=== PATIENT | male | born 1960 | race Caucasian/White ===

== ENCOUNTER 2017-07-26 07:55 | Observation (INO) | payer MEDICAID, OTHER ==
[~2017-07-26] VITALS: Ht 170.2 cm; Wt 77.7 kg
[2017-07-26] MEDS ORDERED: SODIUM CHLORIDE 0.9% 1,000 ML IV ONE (08:23)
[2017-07-26] MEDS ORDERED: SODIUM CHLORIDE 0.9% 1,000ML IVBOLUS ONE (08:30)
[2017-07-26 08:39] LABS: BASOPHILS # (AUTO) 0.04 x10^3/uL (0-0.1); BASOPHILS % (AUTO) 1 % (0-1); EOSINOPHILS # (AUTO) 0.18 x10^3/uL (0-0.4); EOSINOPHILS % (AUTO) 3 % (1-7); LYMPHOCYTES # (AUTO) 2.22 x10^3/uL (1-3.4); LYMPHOCYTES % (AUTO) 37 % (22-44); MD NO; MEAN CORPUSCULAR HEMOGLOBIN 28.2 pg (27.5-34.5); MEAN CORPUSCULAR HGB CONC 33.2 g/dL (33.2-36.2); MEAN PLATELET VOLUME 7.8 fL (7.4-10.4); MONOCYTES # (AUTO) 0.72 x10^3/uL (0.2-0.8); MONOCYTES % (AUTO) 12 % (2-9); NEUTROPHILS % (AUTO) 48 % (42-75); PLATELET COUNT 256 x10^3/uL (130-400); RED BLOOD COUNT 4.87 x10^6/uL (4.38-5.82); RED CELL DISTRIBUTION WIDTH 18.4 % (9.4-14.8)
[2017-07-26 08:51] LABS: ALBUMIN 3.8 g/dL (3.4-5.0); ANION GAP 10 mmol/L (5-15); CALCIUM 8.1 mg/dL (8.5-10.1); CHLORIDE 107 mmol/L (98-107); SALICYLATE LEVEL 2.1 mg/dL (2.8-20.0)
[2017-07-26 08:54] LABS: ALANINE AMINOTRANSFERASE 49 U/L (12-78); ALKALINE PHOSPHATASE 64 U/L (45-117); BILIRUBIN,TOTAL 0.4 mg/dL (0.2-1.0); CREATININE 0.97 mg/dL (0.7-1.3); TOTAL PROTEIN 7.8 g/dL (6.4-8.2)
[2017-07-26 08:56] LABS: ACETAMINOPHEN < 2 mcg/mL (10-30)
[2017-07-26] MEDS ORDERED: LISI-170 PO (10:12)
[2017-07-26] MEDS ORDERED: TRAZ150T62 PO (10:13)
[2017-07-26] MEDS ORDERED: ONDANSETRON ODT 4 MG PO PRN (11:00)
[2017-07-26] MEDS ORDERED: ACETAMINOPHEN 325 MG TABLET PO PRN (11:00)
[2017-07-26] MEDS ORDERED: LORazepam 1MG TABLET ONE ×3 (11:42→17:29)
[2017-07-26] MEDS: LORazepam 1MG TABLET PO PRN ×3 (11:48→17:30)
[2017-07-26 11:51] LABS: AMPHETAMINE SCREEN, URINE Negative (Negative); BARBITURATE SCREEN, URINE Negative (Negative); BENZODIAZEPINE SCREEN, URINE Negative (Negative); CANNABINOID SCREEN, URINE Negative (Negative); COCAINE SCREEN, URINE Negative (Negative); METHADONE SCREEN, URINE Negative (Negative); OPIATE SCREEN, URINE Negative (Negative)
[2017-07-26] MEDS: BACLOFEN 10 MG TABLET PO SCH ×4 (15:53→20:57)
[2017-07-26] MEDS: TRAZODONE 150MG TABLET PO SCH (20:56)
[2017-07-27] MEDS ORDERED: LISINOPRIL 20 MG TABLET PO SCH (09:00)
[2017-07-27] MEDS ORDERED: LISINOPRIL 20 MG TABLET ONE (09:58)
[2017-07-27] MEDS ORDERED: LORazepam 1MG TABLET ONE (09:59)
[2017-07-27] MEDS: LORazepam 1MG TABLET PO PRN ×3 (10:02→20:24)
[2017-07-27] MEDS: BACLOFEN 10 MG TABLET PO SCH ×3 (15:59→20:24)
[2017-07-27 16:00] VITALS: BP 172/102
[2017-07-27 16:14] VITALS: BP 172/102
[2017-07-27 17:00] VITALS: BP 156/93
[2017-07-27 20:07] VITALS: BP 152/84
[2017-07-27] MEDS: TRAZODONE 150MG TABLET PO SCH (20:23)
[2017-07-27] MEDS: LISINOPRIL 20 MG TABLET PO SCH (22:28)
[2017-07-28 08:25] VITALS: BP 123/85
[2017-07-28] MEDS: LISINOPRIL 20 MG TABLET PO SCH ×2 (08:29→20:35)
[2017-07-28] MEDS: BACLOFEN 10 MG TABLET PO SCH ×3 (08:29→20:35)
[2017-07-28 20:20] VITALS: BP 144/96
[2017-07-28] MEDS: TRAZODONE 150MG TABLET PO SCH (20:34)
[2017-07-29 08:12] VITALS: BP 123/86
[2017-07-29] MEDS: LISINOPRIL 20 MG TABLET PO SCH (08:20)
[2017-07-29] MEDS: BACLOFEN 10 MG TABLET PO SCH (08:20)
[2017-07-29] MEDS: LORazepam 1MG TABLET PO PRN (12:05)
== END 2017-07-29 16:42 | disposition home or self-care (01) ==
LOC: ED 08:50 → EDIP 10:25 → 2N 07-27 15:45
PROVIDERS: ADMIT Hospitalist; ATTEND Hospitalist
DX: R45.851 Suicidal ideations (principal); F10.239 Alcohol dependence with withdrawal, unspecified; F32.0 Major depressive disorder, single episode, mild; I11.9 Hypertensive heart disease without heart failure; F17.210 Nicotine dependence, cigarettes, uncomplicated; Q61.3 Polycystic kidney, unspecified; E83.119 Hemochromatosis, unspecified; Z81.8 Family history of other mental and behavioral disorders; Z82.49 Family history of ischemic heart disease and other diseases of the circulatory system; Z82.71 Family history of polycystic kidney
CPT/HCPCS: 36415; 80053; 80307; 80329; 85025; 96360; 99285; G0378; J7030; G0480

== ENCOUNTER 2017-08-07 19:04 | Emergency (ER) | payer OTHER ==
[~2017-08-07] VITALS: Ht 172.7 cm; Wt 82.4 kg
[~2017-08-07 19:04] MED LIST: LISI-170 PO; TRAZ150T62 PO
[2017-08-07 19:52] LABS: BASOPHILS # (AUTO) 0.03 x10^3/uL (0-0.1); BASOPHILS % (AUTO) 1 % (0-1); EOSINOPHILS # (AUTO) 0.09 x10^3/uL (0-0.4); EOSINOPHILS % (AUTO) 2 % (1-7); LYMPHOCYTES % (AUTO) 43 % (22-44); MD NO; MEAN CORPUSCULAR HEMOGLOBIN 27.1 pg (27.5-34.5); MEAN CORPUSCULAR VOLUME 84.9 fL (81-97); MEAN PLATELET VOLUME 7.8 fL (7.4-10.4); MONOCYTES # (AUTO) 0.59 x10^3/uL (0.2-0.8); MONOCYTES % (AUTO) 10 % (2-9); NEUTROPHILS # (AUTO) 2.72 x10^3/uL (1.8-6.8); NEUTROPHILS % (AUTO) 45 % (42-75); PLATELET COUNT 257 x10^3/uL (130-400); RED BLOOD COUNT 5.35 x10^6/uL (4.38-5.82); RED CELL DISTRIBUTION WIDTH 18.6 % (9.4-14.8)
[2017-08-07 20:05] LABS: CHLORIDE 110 mmol/L (98-107)
[2017-08-07 20:06] LABS: ALANINE AMINOTRANSFERASE 51 U/L (12-78); ALBUMIN 3.7 g/dL (3.4-5.0); ANION GAP 8 mmol/L (5-15); CALCIUM 8.3 mg/dL (8.5-10.1); CREATININE 1.22 mg/dL (0.7-1.3); SALICYLATE LEVEL 2.6 mg/dL (2.8-20.0)
[2017-08-07 20:08] LABS: ALKALINE PHOSPHATASE 70 U/L (45-117); BILIRUBIN,TOTAL 0.4 mg/dL (0.2-1.0); TOTAL PROTEIN 7.8 g/dL (6.4-8.2)
[2017-08-07 20:10] LABS: ACETAMINOPHEN < 2 mcg/mL (10-30)
[2017-08-08 07:22] LABS: AMPHETAMINE SCREEN, URINE Negative (Negative); BARBITURATE SCREEN, URINE Negative (Negative); BENZODIAZEPINE SCREEN, URINE Negative (Negative); CANNABINOID SCREEN, URINE Negative (Negative); COCAINE SCREEN, URINE Negative (Negative); METHADONE SCREEN, URINE Negative (Negative); OPIATE SCREEN, URINE Negative (Negative)
[2017-08-08 08:23] VITALS: BP 182/102
== END 2017-08-08 10:17 | disposition home or self-care (01) ==
LOC: ED 19:25
DX: F10.129 Alcohol abuse with intoxication, unspecified (principal)
CPT/HCPCS: 36415; 80053; 80307; 80329; 85025; 99284; G0480

== ENCOUNTER 2017-09-09 00:20 | Emergency (ER) | payer MEDICAID, OTHER ==
[~2017-09-09] VITALS: Ht 170.2 cm; Wt 85.0 kg
[2017-09-09 01:14] LABS: BASOPHILS # (AUTO) 0.02 x10^3/uL (0-0.1); BASOPHILS % (AUTO) 0 % (0-1); EOSINOPHILS # (AUTO) 0.05 x10^3/uL (0-0.4); EOSINOPHILS % (AUTO) 1 % (1-7); LYMPHOCYTES # (AUTO) 1.23 x10^3/uL (1-3.4); LYMPHOCYTES % (AUTO) 18 % (22-44); MD NO; MEAN CORPUSCULAR HEMOGLOBIN 27.4 pg (27.5-34.5); MEAN CORPUSCULAR HGB CONC 32.3 g/dL (33.2-36.2); MEAN CORPUSCULAR VOLUME 84.8 fL (81-97); MEAN PLATELET VOLUME 7.6 fL (7.4-10.4); MONOCYTES # (AUTO) 0.54 x10^3/uL (0.2-0.8); MONOCYTES % (AUTO) 8 % (2-9); NEUTROPHILS # (AUTO) 4.94 x10^3/uL (1.8-6.8); NEUTROPHILS % (AUTO) 73 % (42-75); PLATELET COUNT 236 x10^3/uL (130-400); RED BLOOD COUNT 5.32 x10^6/uL (4.38-5.82); RED CELL DISTRIBUTION WIDTH 20.4 % (9.4-14.8)
[2017-09-09 01:23] LABS: ALANINE AMINOTRANSFERASE 38 U/L (12-78); ALBUMIN 3.5 g/dL (3.4-5.0); ANION GAP 9 mmol/L (5-15); CALCIUM 7.7 mg/dL (8.5-10.1); CHLORIDE 109 mmol/L (98-107); CREATININE 1.12 mg/dL (0.7-1.3); SALICYLATE LEVEL 2.5 mg/dL (2.8-20.0)
[2017-09-09 01:25] LABS: ALKALINE PHOSPHATASE 53 U/L (45-117); BILIRUBIN,TOTAL 0.3 mg/dL (0.2-1.0); TOTAL PROTEIN 7.6 g/dL (6.4-8.2)
[2017-09-09 01:31] LABS: ACETAMINOPHEN < 2 mcg/mL (10-30)
[2017-09-09 03:38] LABS: AMPHETAMINE SCREEN, URINE Negative (Negative); BARBITURATE SCREEN, URINE Negative (Negative); BENZODIAZEPINE SCREEN, URINE Negative (Negative); CANNABINOID SCREEN, URINE Negative (Negative); COCAINE SCREEN, URINE Negative (Negative); METHADONE SCREEN, URINE Negative (Negative); OPIATE SCREEN, URINE Negative (Negative)
[2017-09-09 05:10] VITALS: BP 154/94
== END 2017-09-09 05:20 | disposition home or self-care (01) ==
LOC: ED 01:12
DX: F10.229 Alcohol dependence with intoxication, unspecified (principal); I10 Essential (primary) hypertension
CPT/HCPCS: 36415; 80053; 80307; 80329; 85025; 99284; G0480